=== PATIENT | male | born 1955 | race Caucasian/White ===

== ENCOUNTER 2023-09-19 10:49 | Inpatient (IN) | payer BC, MEDICARE ==
[~2023-09-19] VITALS: Ht 185.4 cm; Wt 142.0 kg
[2023-09-19] MEDS: CLINDAMYCIN 600MG IV 50 ML IV ONE (12:01)
[2023-09-19 12:19] LABS: Basophils # (auto) 0 10 ^3/uL (0-0.2); Basophils % (auto) 0.4 % (0.0-2.0); Eosinophils # (auto) 0.2 10 ^3/uL (0-0.8); Eosinophils % (auto) 1.5 % (0.0-7.0); Hemoglobin 14.9 g/dL (13.5-17.5); Lymphocytes # (auto) 0.7 10 ^3/uL (0.4-5.4); Lymphocytes % (auto) 6.4 % (10.0-50.0); Mean Corpuscular Hemoglobin 31.6 pg (28.0-32.0); Mean Corpuscular Hgb Conc. 33.8 g/dL (32.0-36.0); Mean Corpuscular Volume 93.3 fL (80.0-100.0); Monocytes # (auto) 0.9 10 ^3/uL (0-1.3); Monocytes % (auto) 8.5 % (0.0-12.0); Neutrophils # (auto) 8.8 10 ^3/uL (1.6-8.6); Neutrophils % (auto) 83.2 % (37.0-80.0); Red Blood Cells 4.72 10^6/uL (4.5-5.90); Red Cell Distribution Width 14.1 % (11.8-14.3); White Blood Cell 10.6 10^3/uL (4.4-10.8)
[2023-09-19 12:27] VITALS: PULSE 90; RESP 16; O2SAT 95
[2023-09-19 12:31] LABS: Anion Gap 4 (5-15); Carbon Dioxide 27 mmol/L (20-30); Chloride 106 mmol/L (98-107); Potassium 4.2 mmol/L (3.5-5.1); Sodium 137 mmol/L (136-145)
[2023-09-19 12:32] LABS: Calcium 9.5 mg/dL (8.5-10.1)
[2023-09-19 12:37] LABS: BUN/Creatinine Ratio 15.5 (10.0-20.0); Blood Urea Nitrogen 13 mg/dL (9-23); Glucose 115 mg/dL (74-106)
[2023-09-19 12:54] LABS: Erythrocyte Sedimentation Rate 14 mm/hr (0-20)
[2023-09-19] MEDS: LISINOPRIL 20 MG TAB PO SCH (15:45)
[2023-09-19] MEDS ORDERED: HYDROcodone-ACET 5/325MG TAB PO PRN (15:45)
[2023-09-19] MEDS ORDERED: MORPHINE SULFATE INJ 2 MG/ml SYRG IV PRN (15:45)
[2023-09-19] MEDS ORDERED: ACETAMINOPHEN 325 MG TAB PO PRN ×2 (15:45)
[2023-09-19] MEDS ORDERED: ONDANSETRON HCL 4 MG/2 ML VIAL IV PRN (15:45)
[2023-09-19 16:40] LABS: LDL Cholesterol 96 mg/dL (< 100); Triglycerides 148 mg/dL (< 150)
[2023-09-19 16:42] LABS: Cholesterol 156 mg/dL (< 200); HDL Cholesterol 43 mg/dL (40-59)
[2023-09-19 20:00] VITALS: PULSE 87; RESP 16; O2SAT 95
[2023-09-19] MEDS: hydrALAZINE HCL 20 MG/ML VL IV PRN (21:25)
[2023-09-19] MEDS: diphenhdrAMINE HCL 25 MG CAP PO ONE (21:33)
[2023-09-19] MEDS: CLINDAMYCIN 600MG IV 50 ML IV SCH (22:04)
[2023-09-19 22:30] VITALS: BP 160/82; PULSE 77; RESP 21; TEMP 97.8; O2SAT 92
[2023-09-19 22:51] VITALS: PULSE 77
[2023-09-19 23:27] VITALS: BP 160/82; PULSE 77; RESP 21; TEMP 97.8; O2SAT 96
[2023-09-20] VITALS (7 sets, daily range): BP systolic 114–138; BP diastolic 54–82; PULSE 64–84; RESP 16–21; TEMP 36.6; O2SAT 94–97
[2023-09-20 06:14] LABS: Basophils # (auto) 0 10 ^3/uL (0-0.2); Basophils % (auto) 0.5 % (0.0-2.0); Eosinophils # (auto) 0.3 10 ^3/uL (0-0.8); Eosinophils % (auto) 3.9 % (0.0-7.0); Hematocrit 41.6 % (41.0-53.0); Hemoglobin 13.9 g/dL (13.5-17.5); Lymphocytes # (auto) 1.1 10 ^3/uL (0.4-5.4); Lymphocytes % (auto) 13.7 % (10.0-50.0); Mean Corpuscular Hemoglobin 30.7 pg (28.0-32.0); Mean Corpuscular Hgb Conc. 33.4 g/dL (32.0-36.0); Mean Corpuscular Volume 92.2 fL (80.0-100.0); Monocytes # (auto) 0.8 10 ^3/uL (0-1.3); Monocytes % (auto) 9.9 % (0.0-12.0); Nucleated Red Blood Cells % 0.1 %; Red Blood Cells 4.51 10^6/uL (4.5-5.90); Red Cell Distribution Width 13.8 % (11.8-14.3); White Blood Cell 8.4 10^3/uL (4.4-10.8)
[2023-09-20 06:29] LABS: Alanine Aminotransferase 29 U/L (7-40); Albumin 4.1 g/dL (3.2-4.8); Alkaline Phosphatase 89 U/L (46-116); Anion Gap 4 (5-15); Aspartate Aminotransferase 25 U/L (13-40); BUN/Creatinine Ratio 19.2 (10.0-20.0); Bilirubin, Total 0.7 mg/dL (0.2-1.0); Blood Urea Nitrogen 14 mg/dL (9-23); Calcium 9.1 mg/dL (8.5-10.1); Carbon Dioxide 27 mmol/L (20-30); Chloride 106 mmol/L (98-107); Glucose 102 mg/dL (74-106); Sodium 137 mmol/L (136-145)
[2023-09-20 06:30] LABS: Total Protein 6.4 g/dL (5.7-8.2)
[2023-09-20] MEDS: ENOXAPARIN SOD 40 MG/0.4 ML SYRINGE SC SCH (08:25)
[2023-09-20] MEDS: LORATADINE 10 MG TAB PO ONE (11:15)
[2023-09-20] MEDS ORDERED: METF-370 PO (12:28)
[2023-09-20] MEDS ORDERED: ATOR10TA52 PO (12:28)
[2023-09-20] MEDS ORDERED: LISI20TA56 PO (12:28)
[2023-09-21 01:00] VITALS: BP 131/72; PULSE 66; RESP 14; TEMP 97.7; O2SAT 97
[2023-09-21 05:00] VITALS: BP 152/84; PULSE 77; RESP 14; TEMP 98.1; O2SAT 98
[2023-09-21 06:44] LABS: Basophils # (auto) 0 10 ^3/uL (0-0.2); Basophils % (auto) 0.4 % (0.0-2.0); Eosinophils # (auto) 0.3 10 ^3/uL (0-0.8); Eosinophils % (auto) 3.7 % (0.0-7.0); Hematocrit 41.4 % (41.0-53.0); Hemoglobin 13.9 g/dL (13.5-17.5); Lymphocytes # (auto) 1.1 10 ^3/uL (0.4-5.4); Mean Corpuscular Hgb Conc. 33.5 g/dL (32.0-36.0); Mean Corpuscular Volume 92.6 fL (80.0-100.0); Monocytes # (auto) 0.9 10 ^3/uL (0-1.3); Monocytes % (auto) 11.4 % (0.0-12.0); Neutrophils # (auto) 5.8 10 ^3/uL (1.6-8.6); Neutrophils % (auto) 70.5 % (37.0-80.0); Red Blood Cells 4.48 10^6/uL (4.5-5.90); White Blood Cell 8.2 10^3/uL (4.4-10.8)
[2023-09-21 07:05] LABS: BUN/Creatinine Ratio 16.7 (10.0-20.0); Blood Urea Nitrogen 14 mg/dL (9-23); Glucose 108 mg/dL (74-106)
[2023-09-21 07:11] LABS: Anion Gap 6 (5-15); Carbon Dioxide 25 mmol/L (20-30); Chloride 105 mmol/L (98-107); Potassium 4.4 mmol/L (3.5-5.1); Sodium 136 mmol/L (136-145)
[2023-09-21 07:14] LABS: Calcium 9.4 mg/dL (8.7-10.4)
[2023-09-21 08:00] VITALS: BP 132/75; PULSE 74; RESP 18; TEMP 36.6; O2SAT 97
[2023-09-21 08:40] VITALS: BP 158/85; PULSE 75; RESP 20; TEMP 98.2; O2SAT 97
[2023-09-21] MEDS: LORATADINE 10 MG TAB PO SCH (09:42)
[2023-09-21] MEDS ORDERED: CLIN1CAP70 PO (10:00)
[2023-09-21 12:35] VITALS: BP 124/73; PULSE 72; RESP 18; TEMP 98; O2SAT 97
[2023-09-21 15:42] VITALS: BP 124/73; PULSE 72; RESP 18; TEMP 98; O2SAT 97
== END 2023-09-21 16:20 | disposition home or self-care (01) | DRG 603 ==
LOC: ER 10:57 → OVERFLOW 15:38 → CENTRAL 22:30
PROVIDERS: ADMIT Internal Medicine Geriatric Medicine; ATTEND Emergency Medicine
DX: L03.116 Cellulitis of left lower limb (principal); Z68.41 Body mass index [BMI] 40.0-44.9, adult; E66.01 Morbid (severe) obesity due to excess calories; I10 Essential (primary) hypertension; Z96.641 Presence of right artificial hip joint; R73.03 Prediabetes; Z88.8 Allergy status to other drugs, medicaments and biological substances; Z91.010 Allergy to peanuts; Z79.899 Other long term (current) drug therapy; Z83.3 Family history of diabetes mellitus; Z85.828 Personal history of other malignant neoplasm of skin; Z88.0 Allergy status to penicillin
CPT/HCPCS: 36415; 73700; 80048; 80053; 80061; 83036; 84443; 85025; 85652; 87040; 87205; 93970; G0378; J3490